=== PATIENT | female | born 1950 | race Caucasian/White ===

== ENCOUNTER 2024-02-15 11:00 | Outpatient (CLI) | payer MEDICARE ==
[2024-02-15 18:46] LABS: BASOPHILS % (AUTO) 0.5 %; EOSINOPHILS # (AUTO) 0.2 10^3/uL (0.0-0.7); EOSINOPHILS % (AUTO) 2.7 %; HCT - HEMATOCRIT 41.9 % (37.0-47.0); HGB - HEMOGLOBIN 12.9 g/dL (12.0-16.0); LYMPHOCYTES # (AUTO) 1.3 10^3/uL (1.5-3.5); LYMPHOCYTES % (AUTO) 23.2 %; MEAN CORPUSCULAR HEMOGLOBIN 29.6 pg (27.0-31.0); MEAN CORPUSCULAR HGB CONC 30.8 g/dL (32.0-36.0); MEAN CORPUSCULAR VOLUME 96.1 fL (81.0-99.0); MEAN PLATELET VOLUME 10.2 fL (7.9-10.8); MONOCYTES # (AUTO) 0.4 10^3/uL (0.0-1.0); MONOCYTES % (AUTO) 6.8 %; NEUTROPHILS # (AUTO) 3.7 10^3/uL (1.5-6.6); NEUTROPHILS % (AUTO) 66.6 %; PLT - PLATELET COUNT 314 10^3/uL (130-450); RED BLOOD COUNT 4.36 10^6/uL (4.20-5.40); RED CELL DISTRIBUTION WIDTH 13.1 % (12.0-15.0); WHITE BLOOD COUNT 5.6 x10^3/uL (4.8-10.8)
[2024-02-15 19:12] LABS: ALBUMIN 4.2 g/dL (3.2-5.5); ALBUMIN/GLOBULIN RATIO 1.6 (1.0-2.2); ALKALINE PHOSPHATASE 63 IU/L (42-121); ALT ALANINE AMINOTRANSFERASE 9 IU/L (10-60); AMYLASE 73 U/L (28-100); AST ASPARTATE AMINOTRANSFERASE 15 IU/L (10-42); BILIRUBIN,TOTAL 0.6 mg/dL (0.2-1.0); BUN - BLOOD UREA NITROGEN 9 mg/dL (6-20); CALCIUM 9.2 mg/dL (8.5-10.3); CARBON DIOXIDE - CO2 26 mmol/L (21-32); CHLORIDE 107 mmol/L (101-111); CREATININE 0.5 mg/dL (0.6-1.3); GFR - MDRD 121 (>89); GLUCOSE 86 mg/dL (74-104); LIPASE < 10 U/L (11-82); POTASSIUM 4.6 mmol/L (3.5-4.5); SODIUM 139 mmol/L (135-145); TOTAL PROTEIN 6.9 g/dL (6.4-8.9)
== END 2024-02-15 11:15 | disposition home or self-care (01) ==
LOC: LAB.N 11:00
PROVIDERS: ATTEND Physician Assistant Medical
DX: R10.30 Lower abdominal pain, unspecified (principal)
CPT/HCPCS: 36415; 80053; 82150; 83690; 85025

== ENCOUNTER 2024-02-20 13:29 | Outpatient (CLI) | payer MEDICARE ==
[2024-02-20] MEDS ORDERED: DIATRIZOATE MEGLU/DIATRIZO SOD 30 ML BOTTLE PO ONE (13:32)
[2024-02-20] MEDS ORDERED: iohexoL-300 100 ML VIAL ONE (13:32)
[2024-02-20] MEDS: iohexoL-300 100 ML VIAL IVP ONE (14:48)
--- NOTE | 2024-02-20 17:45 | CT Report ---
PROCEDURE: Abdomen/Pelvis W INDICATIONS: LOWER ABDOMINAL PAIN CONTRAST: 100ml [id number] TECHNIQUE: After the administration of intravenous contrast, a CT scan of the abdomen and pelvis was performed. Images were recorded and evaluated at appropriate window settings. Reformats: coronal and sagittal. F or radiation dose reduction, the following was used: automated exposure control, adjustment of mA and /or kV according to patient size. COMPARISON: None. FINDINGS: Image quality: Diagnostic. Lower chest: Clear lung bases. Mildly enlarged heart. Liver: No solid mass. Gallbladder: No radiopaque stones or wall thickening. Biliary tree: No intrahepatic or extrahepatic dilation, accounting for age. Spleen: No splenomegaly. Pancreas: No pancreatic ductal dilation. Adrenals: No adrenal nodule. Kidneys and ureters: [id number] bilateral hydronephrosis. Symmetric cortical enhancement. No in trarenal calculi. No significant hydroureter or ureteral calculi. Stomach, bowel and peritoneum: There is mild inflammation surrounding 2 diverticula in the hepatic fl exure of the colon. No extraluminal gas or adjacent fluid. There is moderate diverticulosis of sigmoi d colon. No adjacent inflammation.. No pathologic free fluid. Stomach and small bowel are normal. Nor mal appendix. Lymph nodes: No central or retroperitoneal adenopathy. Vessels: No infrarenal aortic aneurysm. Patent portal vein. PELVIS Reproductive organs: Absent. Bladder: No abnormal wall thickening, accounting for underdistention. Pelvic lymph nodes: No pelvic adenopathy by size criteria. Bones: No aggressive osseous abnormality. Other: No significant ventral or inguinal hernia. IMPRESSION: Mild right upper quadrant/hepatic flexure diverticulitis without complication. No bowel obstruction. Mild to moderate bilateral hydronephrosis may be due to vesicoureteral reflux. Less likely bilateral parapelvic cysts may mimic hydronephrosis. Reviewed by: Melonie Miner MD on 02/20/2024 5:44 PM PDT Approved by: Melonie Miner MD on 02/20/2024 5:44 PM PDT Station ID: [id number]
== END 2024-02-20 13:30 | disposition home or self-care (01) ==
LOC: DI 13:29
PROVIDERS: ATTEND Physician Assistant Medical
DX: K57.32 Diverticulitis of large intestine without perforation or abscess without bleeding (principal); N13.30 Unspecified hydronephrosis
CPT/HCPCS: 74177; Q9963; Q9967